=== PATIENT | male | born 1985 | race Caucasian/White ===

== ENCOUNTER 2019-01-31 11:41 | Emergency (ER) | payer BC ==
[2019-01-31] MEDS ORDERED: Morphine 4 MG/ML VIAL (1 ml) 4 MG/ML VIAL IV ONE (12:19)
[2019-01-31] MEDS ORDERED: Ondansetron INJ* 2 MG/ML VIAL IV ONE (12:19)
[2019-01-31] MEDS ORDERED: NS 0.9% 1000 ML** 1,000 ML IV ONE (12:19)
[2019-01-31 12:32] LABS: ABS Eosinophils 0.2 10^3/ul (0-0.6); ABS Lymphocytes 1.3 10^3/ul (1.0-4.8); ABS Monocytes 1.3 10^3/ul (0-0.8); ABS Neutrophils 8.6 10^3/ul (1.5-7.7); Eosinophil % 2.1 %; Hematocrit 47 % (42-52); Hemoglobin 16.2 g/dL (14.0-18.0); Lymphocyte % 11.5 %; Mean Corpuscular HGB Conc 35 g/dL (31-36); Mean Corpuscular Hemoglobin 31 pg (27-31); Mean Corpuscular Volume 91 fL (80-94); Nucleated Red Blood Cells % 0.1; Platelet Count 259 10^3/uL (150-450); Red Blood Count 5.16 10^6 /uL (4.18-5.48); Red Cell Distribution Width 13 % (10-15); White Blood Count 11.5 10^3/uL (3.5-10.8)
--- NOTE | 2019-01-31 12:46 | ED ---
Abdominal Pain/Male - HPI Summary HPI Summary: Patient is a 33-year-old male who presents urgency department for upper abdominal pain 3 days. Patient states today pain is exacerbated and is more constant and sharp in nature. Denies associated symptoms of fever, chest pain, shortness of breath, vomiting. He does note mild dysuria and diarrhea. Patient states he has had pancreatitis in the past and symptoms seem similar. 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 Patient otherwise denies past medical history. No surgical history. Symptoms are moderate in severity. - History of Current Complaint Chief Complaint: EDAbdPain Stated Complaint[facility] Time Seen by Provider: 01/31/19 11:48 Hx Obtained From: Patient Pain Intensity: 10 - Allergies/Home Medications Allergies/Adverse Reactions: Allergies Allergy/AdvReac Type Severity Reaction Status Date / Time No Known Allergies Allergy Verified 01/31/19 11:45 PMH/Surg Hx/FS Hx/Imm Hx Previously Healthy: Yes Infectious Disease History: No Infectious Disease History: Denies: Traveled Outside the in Last 30 Days - Family History Known Family History: Positive: Non-Contributory - Social History Occupation: Unemployed Lives: With Family Alcohol Use: denies recent use Substance Use Type: Reports: Marijuana Smoking Status (MU): Never Smoked Tobacco Review of Systems Constitutional: Negative Negative: Fever, Chills ENT: Negative Cardiovascular: Negative Respiratory: Negative Positive: Abdominal Pain, Diarrhea. Negative: Vomiting, Nausea Positive: dysuria. Negative: discharge, frequency, flank pain Musculoskeletal: Negative Skin: Negative Neurological: Negative All Other Systems Reviewed And Are Negative: Yes Physical Exam Triage Information Reviewed: Yes Vital Signs On Initial Exam: Initial Vitals Temp Pulse Resp BP Pulse Ox 97.7 F 77 18 116/88 98 01/31/19 11:44 01/31/19 11:44 01/31/19 11:44 01/31/19 11:44 01/31/19 11:44 Vital Signs Reviewed: Yes Appearance: Positive: Pain Distress - Pt. curled up on bed lying on his right side. Skin: Positive: Warm, Dry Eyes: Positive: Normal, EOMI Neck: Positive: Supple Respiratory/Lung Sounds: Positive: Clear to Auscultation, Breath Sounds Present Cardiovascular: Positive: Normal, RRR Abdomen Description: Positive: Other: - Marked tenderness to LUQ and epigastric region. Mild left lower quadrant pain. No CVA tenderness. Neurological: Positive: Normal, CN Intact II-III Diagnostics - Vital Signs Vital Signs Temp Pulse Resp BP Pulse Ox 01/31/19 12:35 25 01/31/19 12:00 63 97 01/31/19 11:56 56 100 01/31/19 11:54 61 125/89 100 01/31/19 11:44 97.7 F 77 18 116/88 98 - Laboratory Lab Results: Lab Results 01/31/19 Range/Units 12:25 WBC 11.5 H (3.5-10.8) 10^3/uL RBC 5.16 (4.18-5.48) 10^6 /uL Hgb 16.2 (14.0-18.0) g/dL Hct 47 (42-52) % MCV 91 (80-94) fL MCH 31 (27-31) pg MCHC 35 (31-36) g/dL RDW 13 (10-15) % Plt Count 259 (150-450) 10^3/uL MPV 7.0 L (7.4-10.4) fL Neut % (Auto) 74.7 % Lymph % (Auto) 11.5 % Forrest % (Auto) 11.4 % Eos % (Auto) 2.1 % Baso % (Auto) 0.3 % Absolute Neuts (auto) 8.6 H (1.5-7.7) 10^3/ul Absolute Lymphs (auto) 1.3 (1.0-4.8) 10^3/ul Absolute Monos (auto) 1.3 H (0-0.8) 10^3/ul Absolute Eos (auto) 0.2 (0-0.6) 10^3/ul Absolute Basos (auto) 0.0 (0-0.2) 10^3/ul Absolute Nucleated RBC 0.0 10^3/ul Nucleated RBC % 0.1 Result Diagrams: 01/31/19 12:25 01/31/19 12:25 Lab Statement: Any lab studies that have been ordered have been reviewed, and results considered in the medical decision making process. Abdominal Pain Male Course/Dx - Course Course Of Treatment: Pt. presenting with LUQ and LLQ pain x several days. He appears to be fairly uncomfortable on exam. Suspect possible pancreatitis given hx. Pt. given IV fluids, zofran and morphin. Given LLQ pain as well will obtain ct scan to r/o diverticulitis. Labs including lipase are normal. CT scan negative for acute finding per radiology. Pt. given GI cocktail with moderate improvement of pain. Suspect gastritits. Results discussed. Will start on protonix. Instructed on foods to avoid. Pt. visiting [place] for a wedding. Avised to f.u with a pcp when he returns home. To return to ER if sxs change or worsen. Pt. understands and agrees with plan. - Diagnoses Differential Diagnosis/HQI/PQRI: Appendicitis, Constipation, Pancreatitis, Peptic Ulcer Disease, Renal Colic, Ureteral Stone, Urinary Tract Infection Provider Diagnoses: Gastritis Discharge - Sign-Out/Discharge Documenting (check all that apply): Patient Departure Patient Received Moderate/Deep Sedation with Procedure: No - Discharge Plan Condition: Improved Disposition: HOME Prescriptions: Pantoprazole TAB * [Protonix TAB*] 40 mg PO DAILY #30 tab Patient Education Materials: Gastritis (ED), Diet for Stomach Ulcers and Gastritis (ED) Referrals: [facility] [Outside] Additional Instructions: Follow up your PCP when you return home Take medication as directed Can take over the counter maalox Avoid spicy, acid, fatty/greasy foods, caffeine and NSAIDS (motrin) Return to ER if symptoms change or worsen - Billing Disposition and Condition Condition: IMPROVED Disposition: Home
[2019-01-31 12:48] LABS: BUN/Creatinine Ratio 17.4 (8-20); EGFR Non-African American 103.7 (>60); Potassium 4.4 mmol/L (3.5-5.0)
[2019-01-31 12:49] LABS: Albumin 4.2 g/dL (3.2-5.2); Albumin/Globulin Ratio 1.6 (1-3); C Reactive Protein 9.98 mg/L (<8.01); Calcium 9.8 mg/dL (8.6-10.3); EGFR African American 125.5 (>60); Globulin 2.6 g/dL (2-4); Total Bilirubin 0.4 mg/dL (0.2-1.0); Total Protein 6.8 g/dL (6.4-8.9)
[2019-01-31] MEDS ORDERED: Lidocaine 2% VISCOUS* 15 ML UDC PO ONE (13:10)
[2019-01-31] MEDS ORDERED: Al Hydrox/Mg Hydrox/Simet LIQ* 30 ML UDC PO ONE (13:10)
[2019-01-31] MEDS ORDERED: Iohexol 300* (CONTRAST) 10 ML SDV IV ONE (13:42)
[2019-01-31 17:08] VITALS: BP 108/68
== END 2019-01-31 17:07 | disposition home or self-care (01) ==
LOC: EDBD → ED 11:41
DX: K29.70 Gastritis, unspecified, without bleeding (principal)
CPT/HCPCS: 36415; 74177; 80053; 83690; 85025; 86140; 96361; 96374; 96375; 99283; A9270-GY; J2270; J2405; Q9967